=== PATIENT | female | born 2000 | race Caucasian/White ===

== ENCOUNTER 2024-09-04 14:42 | Emergency (ER) | payer OTHER ==
[~2024-09-04] VITALS: Ht 170.2 cm; Wt 100.0 kg
--- NOTE | 2024-09-04 15:10 | ED.PDOC ---
GI ASSESSMENT HPI Comments 24 year old female presents to the ED with a chief complaint of abdominal pain onset 3 days. Patient states she had a can of soup 3 days ago, since then has been experiencing diffused abdominal pain, nausea, vomiting. Patient states she currently feels dehydrated, is dizzy and is also experiencing constipation. Denies PMHx as well as chest pain, shortness of breath, headache, diarrhea, hematemesis, melena, fevers, chills. No other symptoms or modifying factors present at this time. Chief Complaint: Nausea/Vomiting Time Seen by MD: 14:57 Primary Care Provider: TEE Vega Notes: Medications, Allergies Allergies: Coded Allergies: NO KNOWN ALLERGIES (Unverified , 09/04/24) Information Source: Patient Mode of Arrival: Wheelchair Timing: Days Duration: Since onset Prehospital treatment: None Quality: Sharp Severity: Moderate Recent: None Recent Hx of: None Pain Location: Diffuse Modifying Factors: Nothing Associated sign and symptoms: Nausea, Vomiting, Constipation, Abdominal Pain Past Medical History PAST MEDICAL HISTORY: Denies Surgical History: Denies all surgeries CREDIT REVIEW MANAGER History: No Pertinent CREDIT REVIEW MANAGER History Family History Family History: Reviewed,noncontributory to illness, No family hx of Cancer, No family hx of DM, No family hx of Heart araceli, No family hx of HTN, No family hx ofKidney araceli, No family hx of Liver araceli, No family hx of Lung araceli, No family hx of Stroke Social History Smoker: Non-Smoker Alcohol: Denies ETOH Use Drugs: Denies Drug Use Lives In: Home Constitutional: denies: chills, diaphoresis, fatigue, fever, malaise, sweats, weakness, others EENTM: denies: blurred vision, double vision, ear bleeding, ear discharge, ear drainage, ear pain, ear ringing, eye pain, eye redness, hearing loss, mouth pain, mouth swelling, nasal discharge, nose bleeding, nose congestion, nose pain, photophobia, tearing, throat pain, throat swelling, voice changes, others Respiratory: denies: cough, hemoptysis, orthopnea, SOB at rest, shortness of breath, SOB with excertion, stridor, wheezing, others Cardiovascular: denies: chest pain, dizzy spells, diaphoresis, Dyspnea on exertion, edema, irregular heart beat, left arm pain, lightheadedness, palpitations, PND, syncope, others Gastrointestinal: reports: abdominal pain, constipated, nausea, vomiting; denies: abdomen distended, blood streaked bowels, diarrhea, dysphagia, difficulty swallowing, hematemesis, melena, poor appetite, poor fluid intake, rectal bleeding, rectal pain, others Genitourinary: denies: abnormal vagina bleeding, burning, dyspareunia, dysuria, flank pain, frequency, hematuria, incontinence, pain, , vagina discharge, urgency, others Neurological: denies: dizziness, fainting, headache, left sided numbness, left sided weakness, numbness, paresthesia, pre-existing deficit, right sided numbness, right sided weakness, seizure, speech problems, tingling, tremors, weakness, others Musculoskeletal: denies: back pain, gout, joint pain, joint swelling, muscle pain, muscle stiffness, neck pain, others Integumetry: denies: bruises, change in color, change in hair/nails, dryness, laceration, lesions, lumps, rash, wounds, others Allergic/Immunocompromised: denies: Difficulty Healing, Frequent Infections, Hives, Itching, others Hematologic/Lymphatic: denies: anemia, blood clots, easy bleeding, easy bruising, swollen glands, others Endocrine: denies: excessive hunger, excessive sweating, excessive thirst, excessive urination, flushing, intolerance to cold, intolerance to heat, unexpl ained weight gain, unexplained weight loss, others Psychiatric: denies: anxiety, bipolar disorder, depression, hopeless, panic disorder, schizophrenia, sleepless, suicidal, others All Other Systems: Reviewed and Negative Physical Exam General Appearance: Moderate Distress HEENT: Normal ENT Inspection, Pharynx Normal, TMs Normal Neck: Full Range of Motion, Non-Tender, Normal, Normal Inspection Respiratory: Chest Non-Tender, Lungs Clear, No Accessory Muscle Use, No Respiratory Distress, Normal Breath Sounds Cardiovascular: No Edema, No JVD, No Murmur, No Gallop, Normal Peripheral Pulses, Regular Rate/Rhythm Breast Exam: Deferred Gastrointestinal: No Organomegaly, Non Tender, No Pulsatile Mass, Normal Bowel Sounds, Soft Genitalia: Deferred Pelvic: Deferred Rectal: Deferred Extremities: No calf tenderness, Normal capillary refill, Normal inspection, Normal range of motion, Non-tender, No pedal edema Musculoskeletal : Apperance: Normal Neurologic: Alert, cane furniture maker II-XII nml as Tested, No Motor Deficits, Normal Affect, Normal Mood, No Sensory Deficits Cerebellar Function: NOT DONE Reflexes: NOT DONE Skin: Dry, Normal Color, Warm Lymphatic: No Adenopathy Was a procedure done? Was a procedure done?: No GI differential Dx Differential Diagnosis: Constipation, Diverticular disease, Esophagitis, Gastritis/PUD, Gastroenteritis X-Ray, Labs, Meds, VS Vital Signs Date Time Temp Pulse Resp B/P (MAP) Pulse Ox O2 Delivery O2 Flow Rate FiO2 09/04/24 16:44 97.9 67 17 127/70 (89) 96 97.9 09/04/24 14:48 99.0 70 16 132/88 (103) 99 99.0 Lab Test 09/04/24 15:16 Range/Units White Blood Count 15.6 H 4.4-10.8 10^3/uL Red Blood Count 5.00 4.0-5.20 10^6/uL Hemoglobin 14.7 12.2-16.2 g/dL Hematocrit 43.1 36.0-46.0 % Mean Corpuscular Volume 86.3 80.0-100.0 fL Mean Corpuscular Hemoglobin 29.3 28.0-32.0 pg Mean Corpuscular Hemoglobin Concent 34.0 32.0-36.0 g/dL Red Cell Distribution Width 13.4 11.8-14.3 % Platelet Count 427 140-450 10^3/uL Mean Platelet Volume 8.5 6.9-10.8 fL Neutrophils (%) (Auto) 83.9 H 37.0-80.0 % Lymphocytes (%) (Auto) 12.0 10.0-50.0 % Monocytes (%) (Auto) 3.6 0.0-12.0 % Eosinophils (%) (Auto) 0.1 0.0-7.0 % Basophils (%) (Auto) 0.4 0.0-2.0 % Neutrophils # (Auto) 13.1 H 1.6-8.6 10 ^3/uL Lymphocytes # (Auto) 1.9 0.4-5.4 10 ^3/uL Monocytes # (Auto) 0.6 0-1.3 10 ^3/uL Eosinophils # (Auto) 0 0-0.8 10 ^3/uL Basophils # (Auto) 0.1 0-0.2 10 ^3/uL Nucleated Red Blood Cells 0.0 % Sodium Level 139 136-145 mmol/L Potassium Level 3.8 3.5-5.1 mmol/L Chloride Level 106 98-107 mmol/L Carbon Dioxide Level 21 20-31 mmol/L Anion Gap 12 5-15 Blood Urea Nitrogen 15 9-23 mg/dL Creatinine 0.70 0.550-1.02 mg/dL Glomerular Filtration Rate Calc 122 >90 mL/min BUN/Creatinine Ratio 21.4 H 10.0-20.0 Serum Glucose 100 74-106 mg/dL Calcium Level 10.4 8.7-10.4 mg/dL Current Medications Medications (Trade) Dose Ordered Sig/Liliane Route Start Time Stop Time Status Last Admin Sodium Chloride 1,000 ml @ 1,000 mls/hr Q1H ONCE IV 09/04/24 15:15 09/04/24 16:14 DC 09/04/24 15:15 Ondansetron HCl (Zofran) 4 mg ONCE ONCE IV 09/04/24 15:15 09/04/24 15:16 DC 09/04/24 17:01 Patient alert. Came in because of nausea vomiting. WBC elevated. Vitals stable. Abdomen is soft. Unable to tolerate any solid liquid diet. Establish intravenous access. Was given fluids. Was given Zofran. Possible sepsis. Was given Rocephin. Was given Flagyl. Continue fluids. Explained to the patient. She will be admitted for abdominal pain unknown with sepsis. Continue monitoring. Time of 1ST Reevaluation: 15:27 Reevaluation 1ST: Unchanged Patient Education/Counseling: Diagnosis, Treatment, Prognosis Family Education/Counseling: No Family Present SEPSIS Sepsis Screen Date sepsis recognized/suspect: Sep 04, 2024 Time Sepsis recognized/suspect: 144 Recent Procedure: No On Antibiotic Therapy: No Respiratory Rate >20: No Heart Rate >90: No Temp<36 C (96.8 F) or >38.3 C: No SBP <90 or MAP <65 mmHG: No New Acute Mental Status Change: No Is the patient on CPAP, BIPAP,: No Physician Orders Ct Ab Pel Wo Con-No Oral Or Iv (09/04/24 17:18) Metronidazole 500mg/100ml (Flagyl 500mg/ (09/04/24 17:30) Blood Culture (09/04/24 17:19) Lactic Acid W/ Reflex Order (09/04/24 17:19) Ceftriaxone 1gm/50ml D5w (Rocephin) (09/04/24 17:30) Sodium Chloride 0.9% (09/04/24 17:30) Sodium Chloride 0.9% (09/04/24 17:30) Vital Signs Date Time Temp Pulse Resp B/P (MAP) Pulse Ox O2 Delivery O2 Flow Rate FiO2 09/04/24 16:44 97.9 67 17 127/70 (89) 96 97.9 09/04/24 14:48 99.0 70 16 132/88 (103) 99 99.0 Laboratory Tests Test 09/04/24 15:16 White Blood Count 15.6 10^3/uL (4.4-10.8) H Medications Medications Dose Ordered Sig/Liliane Route Start Time Stop Time Status Last Admin Dose Admin Ondansetron HCl 4 mg ONCE ONCE IV 09/04/24 15:15 09/04/24 15:16 DC 09/04/24 17:01 Sodium Chloride 1,000 ml @ 1,000 mls/hr Q1H ONCE IV 09/04/24 15:15 09/04/24 16:14 DC 09/04/24 15:15 Departure 1 Departure Time of Disposition: 17:22 Impression: Primary Impression: Sepsis, unspecified organism Qualified Codes: A41.9 - Sepsis, unspecified organism Additional Impression: Gastroenteritis Disposition: 30 STILL A PATIENT Condition: Good Critical Care Note Critical Care Time?: No Stability Stability form required: No Heart Score Heart Score: Heart Score Response (Comments) Value History N/A 0 EKG N/A 0 Age N/A 0 Risk Factors N/A 0 Troponin N/A 0 Total 0 I personally scribed for OLEKSANDR HOWARD MD ([email or web address]) on 09/04/24 at 15:10. Electronically submitted by Vandana Pratt ([email or web address]). OLEKSANDR HOWARD MD Sep 04, 2024 15:10
[2024-09-04] MEDS: SODIUM CHLORIDE 0.9% 1,000 ML IV ONE ×3 (15:15→21:20)
[2024-09-04 15:26] LABS: Hematocrit 43.1 % (36.0-46.0); Hemoglobin 14.7 g/dL (12.2-16.2); Mean Corpuscular Hemoglobin 29.3 pg (28.0-32.0); Mean Corpuscular Volume 86.3 fL (80.0-100.0); Nucleated Red Blood Cells % 0.0 %
[2024-09-04 15:34] LABS: Chloride 106 mmol/L (98-107); Potassium 3.8 mmol/L (3.5-5.1); Sodium 139 mmol/L (136-145)
[2024-09-04 15:35] LABS: Anion Gap 12 (5-15); Carbon Dioxide 21 mmol/L (20-31)
[2024-09-04 15:36] LABS: Calcium 10.4 mg/dL (8.7-10.4)
[2024-09-04 15:40] LABS: BUN/Creatinine Ratio 21.4 (10.0-20.0); Blood Urea Nitrogen 15 mg/dL (9-23); Glucose 100 mg/dL (74-106)
[2024-09-04] MEDS: ONDANSETRON HCL 4 MG/2 ML VIAL IV ONE ×2 (17:01→21:20)
[2024-09-04] MEDS: cefTRIAXone 1GM/50ML D5W 50 ML IV ONE (17:57)
--- NOTE | 2024-09-04 18:09 | DVH ---
COMPUTERIZED TOMOGRAPHY ABDOMEN AND PELVIS WITHOUT CONTRAST REASON FOR EXAM: enteritis COMPARISON: None TECHNIQUE: Spiral scans were acquired from the diaphragm to the symphysis pubis without intravenous c ontrast administration. 2-D coronal and sagittal reformatted images were provided. Radiation optimiza tion: All CT scans at this facility use at least one of these dose optimization techniques: Automated exposure control mA and/or kV adjustment per patient size (includes targeted exams where dose is mat ched to clinical indication) or iterative reconstruction. RADIATION DOSE: CTDI: 20.43 mGy DLP: 1054.05 mGy-cm FINDINGS: The lung bases are grossly clear. There is no pleural effusion. There is no pericardial effusion. The spleen is not enlarged. The liver is normal in size and contour. No calcified gallstone is ident ified. Evaluation of the abdominal organs is suboptimal in the absence of intravenous contrast. Unen hanced appearance of the pancreas is unremarkable. The adrenal glands are normal. The kidneys are si milar in size. There is no hydronephrosis of either kidney. There is no renal, ureteral, or bladder calculus. The urinary bladder is unremarkable. The uterus and ovaries are within normal limits. Ther e is trace fluid in the dependent pelvis, likely physiologic. The colonic stool burden is small. The appendix is normal. There is no pathologic distention of the small bowel to suggest obstruction. Ther e is no pathologic lymphadenopathy by size criteria. There is no abdominal aortic aneurysm. No acute osseous abnormality is identified. IMPRESSION: Trace fluid in the dependent pelvis. Likely physiologic. Normal appendix No calcified gallstones.
[2024-09-04 21:20] VITALS: BP 139/85; PULSE 65; RESP 14; TEMP 98.2; O2SAT 100
[2024-09-04 21:48] LABS: Urine Protein, UAD TRACE (Negative)
[2024-09-04 21:49] LABS: Amphetamine Screen, Urine Neg (NEGATIVE); Barbiturate Scree,Urine Neg (NEGATIVE); Benzodiazephine Screen, Urine Neg (NEGATIVE); Cannabinoid Screen, Urine Neg (NEGATIVE); Cocaine Screen, Urine Neg (NEGATIVE); Opiate Scree,Urine Neg (NEGATIVE); Phencyclidine Screen, Urine Neg (NEGATIVE)
--- NOTE | 2024-09-04 22:50 | ED.PDOC ---
Departure 1 Departure Time of Disposition: 22:50 ([address] Dr. Palafox is feeling significantly better we would like to go home. We will discharge patient home) Impression: Primary Impression: Gastroenteritis Disposition: 01 HOME / SELF CARE / HOMELESS Condition: Stable Additional Instructions: You likely have gastroenteritis. It is important to stay well hydrated and well rested. This usually resolves within 1 week. If your symptoms worsen or you have any other concerns please return to the ER. Discharged With: Self ARMIDA ESCOTO MD Sep 04, 2024 22:50
== END 2024-09-04 23:07 | disposition home or self-care (01) ==
LOC: ER 14:42
DX: A41.9 Sepsis, unspecified organism (principal); K52.9 Noninfective gastroenteritis and colitis, unspecified; Z79.899 Other long term (current) drug therapy
CPT/HCPCS: 36415; 74176; 80048; 80307; 81001; 81025; 83605; 85025; 87040; 96361; 96365; 96368; 96375; 96376; 99285; J0696; J2405; J3490; J7030